=== PATIENT | male | born 1995 | race Two or more races ===

== ENCOUNTER 2021-04-16 04:01 | Emergency (ER) | payer SELFPAY ==
[~2021-04-16] VITALS: Ht 165.1 cm; Wt 108.9 kg
[2021-04-16] MEDS ORDERED: LORAZEPAM INJ 2 MG/ML VIAL ONE (04:18)
--- NOTE | 2021-04-16 04:23 | NUR ---
BIBRA 89 AND [employer] FOR BIZARRE BEHAVIOR, RUNNING AROUND, ASKING FOR HELP AND CLAIMING SOMEONE IS CHASING HIM. PT A, OX3 ON TRIAGE. ADMITTED ON TAKING CRYSTAL. DENIED SI/HI. PT WAS PLACED IN ER BED 6, ON MONITOR. NOTED W/ TACHYCARDIA. PT IS NOT ON [employer] CUSTODY. REMAINED ON CLOSE SUPERVISION. SI PRECAUTION IMPLEMENTED. WILL CONT TO MONITOR ,
[2021-04-16] MEDS ORDERED: LORAZEPAM INJ 2 MG/ML VIAL IM ONE (04:30)
--- NOTE | 2021-04-16 04:34 | NUR ---
verbal order 5mh dante
[2021-04-16] MEDS ORDERED: HALOPERIDOL LACTATE INJ 5 MG/ML VIAL ONE (04:35)
--- NOTE | 2021-04-16 05:30 | NUR ---
PT ATTACHED TO MONITOR AND POX. VSS
--- NOTE | 2021-04-16 06:30 | NUR ---
PT SLEEPING, ATTACHED TO MONITOR, VSS
--- NOTE | 2021-04-16 12:59 | NUR ---
SS Consult: SS Consult requested for drug abuse & homelessness. The pt. is a 25-year old male who presents to ED due to bizarre behavior, paranoia and believing someone was chasing him. Per EMR, pt. used Methamphetamine. MORRIS conducted interview in Armenian. The pt. appears unkempt is Alert & Oriented X4 and makes good eye contact. The pt. has euthymic mood and affect. Pt. states he remembers feeling paranoid because he kept seeing the same colored cars drive by his car and someone parked behind his car. Pt. admits having Visual hallucinations of soemone in all black chasing him. Pt. denies current hallucinations. Pt. has insight into his problem. Pt. stated he has been living in his car for the past 3 days after he from his girlfriend whom he was living with. MORRIS explored pt.'s mental health Hx. Pt. denies any mental health illness or taking psychotropic medication. Pt. denies current suicidal and homicidal ideation. MORRIS explored pt.'s dug & ETOH Hx. Patient stated he has recently started using "crystal" after his girlfriend "betrayed & cheated" on him. Pt. stated he has used it 9 times in the last 1.5 months. Pt. states that he does want to become sober. MORRIS provided addiction resources and he accepted them. MORRIS offered referral to drug rehab and pt. accepted stating he can do outpatient as he needs to be able to work. Pt. states he is ambulatory. MORRIS explored pt.'s support system. Pt. states he has no support system. Pt. states he does not receive any financial assistance. Plan: Pt. stated he wants to return to reside in his care located at [address] [place] [address] in [place]. MORRIS will refer pt. to [facility] for outpatient services. Pt. refused signed homeless waiver and it was placed in the chart. MORRIS provided pt. with homeless, and addiction resources and pt. accepted them. was busy and MORRIS informed nurse about DC plan. Year-round shelters: [place] [facility] [address] [place] [address] ; [facility] [address] [place] [address]; [facility] [address] [facility] [address] Winter Shelters: Loretta Pearson [place] Provider: [facility] [place] Address: [address], [address] # of Beds: 47 Population Served: [facility] SPA 6 | [facility] Julissa Tenorio Cl[place]plint Provider: [facility] Address: [address] [place] [address], [address] # of Beds: 66 Population [facility]erved: [facility] Provider: [facility] Address: [address] [facility], [address] # of Beds: 56 Population Served: [facility] [place]ick [place] Provider: /[facility] Address: [address] [facility], [address] # of Beds: 49 Population Served: [facility] SPA 8 | [facility] Provider: [facility] Address: [address] [facility], [address] # of Beds: 37 Population Served: [facility] Hygiene: [facility]: [address] [facility] ; [place] [facility] [address] [facility] ; [facility] [address] [facility] . Food Resources: [place] [facility] at [facility]- [address] [facility]; Meet Each Need with Dignity ([facility]) [address] [facility]; [facility] [address] [facility]; [facility] [address] [facility]. Mental Health resources provided: [facility] [address] [place] [address] ; [facility] [address] [facility] [address], [place] [address] ; [facility] [address] [place] [address] ; [facility] [place], [place] [id number] Healthcare Clinics: [facility] [address], [address] [place]. [place] ; [facility] [address] [facility] [address] [place] [address]; [facility] [address] [facility]. [place] [phone] Counseling--Outpatient [facility] [address] [facility], [place] [address] (Specializes in in-depth psychotherapy for emotional distress: anxiety, depression, interpersonal conflicts, life transitions, childhood abuse) [facility] [address] [place] [address] (Assist with solving problem marital difficulties, separation & divorce, aging parents, & grief, chronic & terminal illness) [facility] [address] [place] [address] (Deal with loss & grief, anxiety, marital difficulties) Home[facility]/Mental Health Services [address] [place], [place] [id number] (Provide in-home mental services to people who are incapable of leaving their homes) [facility] Service/Resource Center [address] [place] [address] [facility] [address] [facility] [address]varez. [place], [place] [phone] PSYCHIATRIC OUTPATIENT SERVICES [facility] Partial Hospitalization and Intensive Outpatient Program (Managed Care and [place] Only)[address] [address] [facility] [phone] [facility] Partial Hospitalization and Outpatient [address] [place], [place] [phone] [facility] [place] E[address] [facility], [place] [phone] [facility] Trino Partial Hospitalization and Outpatient Ugclfxe68031 Jennifer Ho, [phone] Substance Abuse resources provided included: [facility] Substance Abuse Self-Helpline ([facility]) ; [facility] [address] [facility]. [place] [phone] ; [facility] [place] [address] [facility] [address] ; [facility] [address] [place] [address] ; [facility] [address] [facility] [phone] ; [facility] [address] [facility] [address] ; Jac[facility] [address] [facility] [phone] ; [facility] Substance Abuse Helpline([facility] ; [facility] ; [facility] [place]; [facility] [place]; [facility] [place]; [facility] [place]; [facility] [place]; [place]; [facility] [place]; [facility] [place]; Alcoholics Anonymous -[facility]; Nr-Fkyx-Yfibarq ; Marijuana Anonymous -[facility]; Narcotics Anonymous www.na.org;
--- NOTE | 2021-04-16 13:43 | NUR ---
Patient discharged to home in stable condition. Written and verbal after care instructions given. Patient verbalizes understanding of instruction.
[2021-04-16 13:44] VITALS: BP 133/82
--- NOTE | 2021-04-16 13:45 | NUR ---
TTC Referral: MORRIS faxed clinicals To: [facility] FAX:[phone] PHONE:[phone] for outpatient Tx.
== END 2021-04-16 13:45 | disposition home or self-care (01) ==
LOC: ER 04:10
DX: F15.10 Other stimulant abuse, uncomplicated (principal); F22 Delusional disorders
CPT/HCPCS: 96372; 99285; J1630; J2060